=== PATIENT | female | born 1975 | race Caucasian/White ===

== ENCOUNTER 2020-08-25 00:44 | Inpatient (IN) ==
[2020-08-25] MEDS ORDERED: NITROGLYCERIN 2% OINT 1 INCH/GM PACK TOP STA (00:59)
[2020-08-25] MEDS ORDERED: ASPIRIN 325 MG TABLET PO STA (00:59)
[2020-08-25] MEDS ORDERED: NITROGLYCERIN 2% OINT 1 INCH/GM PACK TOP ONE ×2 (01:03→09:13)
[2020-08-25 01:19] LABS: Basophils # 0.1 10*3/uL (0.0-0.2); Basophils % 0.9 % (0.0-0.8); Eosinophils # 0.3 10*3/uL (0.0-0.87); Eosinophils % 2.8 % (0.00-10.9); Hematocrit 40.5 VOL% (35.7-47.0); Hemoglobin 13.5 GM/DL (12.0-16.0); Immature Granulocytes % 0.4 %; Immature Granulocytes Absolute 0.04 #; Lymphocytes # 2.6 10*3/uL (1.4-4.0); Lymphocytes % 23.9 % (21.3-54.2); Mean Corpuscular HGB Conc 33.3 GM/DL (32-36); Mean Corpuscular Volume 86.5 FL (87-102); Monocytes % 6.1 % (1.7-12.7); Neutrophils % 65.9 % (38.7-73.9); Platelet Count 296 T/CUMM (130-400); Red Blood Count 4.68 MC/CUMM (3.8-5.5); Red Cell Distribution Width 12.2 % (9.3-17.3); White Blood Count 10.9 T/CUMM (4-12)
[2020-08-25] MEDS ORDERED: MORPHINE 4 MG/1 ML VIAL IV STA ×2 (01:24→02:06)
[2020-08-25] MEDS ORDERED: ONDANSETRON 4 MG/2 ML VIAL IV STA (01:25)
[2020-08-25] MEDS ORDERED: ALUM/MAG/SIMETH/LIDO VISC 1:1 30 ML BOTTLE PO STA (01:25)
[2020-08-25] MEDS ORDERED: ALUM/MAG/SIMETH/LIDO VISC 1:1 30 ML BOTTLE PO ONE ×2 (01:29→07:30)
[2020-08-25 01:44] LABS: PT Patient Result 10.5 SECS (9.8-11.9)
[2020-08-25] MEDS ORDERED: ENOXAPARIN 30 MG/0.3 ML SYRINGE SUBCUT STA (02:06)
[2020-08-25] MEDS ORDERED: ENOXAPARIN 80 MG/0.8 ML SYRINGE SUBCUT ONE (02:08)
[2020-08-25 02:13] LABS: Albumin 4.5 G/DL (3.4-5.0); Bilirubin,Total 0.4 MG/DL (0.2-1.0); Calcium 9.8 MG/DL (8.5-10.1); Osmolality,Calculated 280.4 MOS/KG (273-304); Potassium 3.8 MMOL/L (3.5-5.1); Total Protein 7.5 G/DL (6.4-8.2)
[2020-08-25] MEDS ORDERED: MAGNESIUM SULF RIDER 4 GM in PREMIX 1 EACH IV PRN (02:15)
[2020-08-25] MEDS ORDERED: MAGNESIUM SULF RIDER 2 GM in PREMIX 1 EACH IV PRN (02:15)
[2020-08-25] MEDS ORDERED: SODIUM CHLORIDE 0.9% 1,000 ML IV STA (02:32)
[2020-08-25] MEDS ORDERED: TIROFIBAN 5,000 MCG/100 ML PREMIX IV SCH (03:05)
[2020-08-25] MEDS ORDERED: ZALEPLON 5 MG CAPSULE PO PRN (04:26)
[2020-08-25] MEDS ORDERED: SODIUM CHLORIDE 0.9% 1,000 ML IV SCH ×2 (04:30→16:30)
[2020-08-25] MEDS ORDERED: CLORAZEPATE 3.75 MG TABLET PO PRN (04:35)
[2020-08-25] MEDS ORDERED: TIROFIBAN 5,000 MCG/100 ML PREMIX IV ONE (04:47)
[2020-08-25] MEDS ORDERED: PROMETHAZINE 25 MG/1 ML VIAL ONE (04:47)
[2020-08-25] MEDS ORDERED: NITROGLYCERIN 50 MG/250 ML BOTTLE IV ONE (04:47)
[2020-08-25] MEDS ORDERED: MIDAZOLAM 2 MG/2 ML VIAL ONE (04:47)
[2020-08-25] MEDS ORDERED: CLOPIDOGREL 300 MG TABLET ONE (04:47)
[2020-08-25] MEDS ORDERED: fentaNYL 100 MCG/2 ML VIAL ONE (04:47)
[2020-08-25] MEDS ORDERED: HYDROmorphone 2 MG/1 ML VIAL ONE (04:47)
[2020-08-25] MEDS: HYDROmorphone 2 MG/1 ML VIAL IV PRN ×4 (05:23→19:35)
[2020-08-25 06:26] LABS: CKMB % 8.6 %; Troponin I 4.47 NG/ML (0.00-0.045)
[2020-08-25] MEDS: PANTOPRAZOLE 40 MG TABLET PO SCH (08:15)
[2020-08-25] MEDS: METOPROLOL TARTRATE 25 MG TABLET PO SCH ×2 (08:15→22:00)
[2020-08-25] MEDS: ASPIRIN EC 81 MG TABLET PO SCH (08:15)
[2020-08-25] MEDS ORDERED: BISACODYL 10 MG SUPP RECTAL ONE (08:18)
[2020-08-25 08:52] LABS: Risk Ratio 3.16; VLDL CHOLESTEROL 16.8 MG/DL
[2020-08-25] MEDS ORDERED: PANTOPRAZOLE 40 MG TABLET PO SCH (09:00)
[2020-08-25] MEDS ORDERED: ASPIRIN EC 81 MG TABLET PO SCH (09:00)
[2020-08-25] MEDS: SUCRALFATE 1 GM TABLET PO PRN ×2 (09:10→22:37)
[2020-08-25] MEDS: NITROGLYCERIN SL 0.4 MG TABLET SL PRN ×2 (12:20→13:03)
[2020-08-25] MEDS: NITROGLYCERIN 2% OINT 1 INCH/GM PACK TOP SCH ×2 (12:30→18:30)
[2020-08-25 13:16] LABS: Troponin I 4.76 NG/ML (0.00-0.045)
[2020-08-25] MEDS: lisinopriL 10 MG TABLET PO SCH (13:30)
[2020-08-25] MEDS: ONDANSETRON 4 MG/2 ML VIAL IV PRN ×2 (13:30→19:37)
[2020-08-25 14:04] LABS: CKMB % 13.9 %
[2020-08-25 14:11] LABS: Troponin I 17.7 NG/ML (0.00-0.045)
[2020-08-25] MEDS: PROMETHAZINE INJ 12.5 MG in SODIUM CHLORIDE 0.9% 50 ML IV PRN ×2 (16:15→22:40)
[2020-08-25 19:23] VITALS: BP 136/78
[2020-08-25] MEDS: ALPRAZolam 0.25 MG TABLET PO PRN (21:00)
[2020-08-25 21:25] LABS: CKMB % 11.8 %
[2020-08-25 21:30] LABS: Troponin I 26.9 NG/ML (0.00-0.045)
[2020-08-25] MEDS: ROSUVASTATIN 20 MG TABLET PO SCH (22:00)
[2020-08-26] MEDS ORDERED: diphenhydrAMINE CAP 25 MG CAPSULE ONE (00:41)
[2020-08-26] MEDS: diphenhydrAMINE CAP 25 MG CAPSULE PO PRN (00:45)
[2020-08-26] MEDS ORDERED: KETOROLAC 15 MG/1 ML VIAL IV SCH (02:30)
[2020-08-26] MEDS: NITROGLYCERIN 2% OINT 1 INCH/GM PACK TOP SCH ×2 (02:43→06:30)
[2020-08-26] MEDS: KETOROLAC 15 MG/1 ML VIAL IV PRN ×3 (02:45→21:57)
[2020-08-26 02:49] LABS: Barbiturates Screen,Urine Negative (Negative); Benzodiazepines Screen,Urine Positive (Negative); Cannabinoid Screen,Urine Negative (Negative); Opiate Screen,Urine Positive (Negative); Phencyclidine Screen,Urine Negative (Negative)
[2020-08-26 05:20] LABS: Basophils % 0.3 % (0.0-0.8); Eosinophils % 0.1 % (0.00-10.9); Hematocrit 37.4 VOL% (35.7-47.0); Hemoglobin 12.5 GM/DL (12.0-16.0); Immature Granulocytes % 0.6 %; Lymphocytes # 1.2 10*3/uL (1.4-4.0); Lymphocytes % 7.6 % (21.3-54.2); Mean Corpuscular HGB Conc 33.4 GM/DL (32-36); Mean Platelet Volume 9.3 FL (9.6-12.0); Neutrophils % 84.4 % (38.7-73.9); Platelet Count 245 T/CUMM (130-400); Red Cell Distribution Width 12.3 % (9.3-17.3); White Blood Count 15.8 T/CUMM (4-12)
[2020-08-26 05:54] LABS: Calcium 8.7 MG/DL (8.5-10.1); Osmolality,Calculated 273.8 MOS/KG (273-304); Potassium 3.5 MMOL/L (3.5-5.1)
[2020-08-26 05:59] LABS: Calcium 8.9 MG/DL (8.5-10.1); Osmolality,Calculated 273.8 MOS/KG (273-304); Potassium 3.4 MMOL/L (3.5-5.1); Risk Ratio 2.75; VLDL CHOLESTEROL 10.8 MG/DL
[2020-08-26 06:30] LABS: Troponin I 24.8 NG/ML (0.00-0.045)
[2020-08-26] MEDS: METOPROLOL TARTRATE 25 MG TABLET PO SCH (08:37)
[2020-08-26] MEDS: ASPIRIN EC 81 MG TABLET PO SCH (08:37)
[2020-08-26] MEDS: CLOPIDOGREL 75 MG TABLET PO SCH (08:37)
[2020-08-26] MEDS: PANTOPRAZOLE 40 MG TABLET PO SCH (08:37)
[2020-08-26] MEDS ORDERED: NON-FORMULARY MEDICATION (Semaglutide [Ozempic] 1 mg/dose (4 mg/3 mL) Pen Injector) SUBCUT SCH (09:00)
[2020-08-26] MEDS: lisinopriL 10 MG TABLET PO SCH (09:01)
[2020-08-26] MEDS ORDERED: PROMETHAZINE 25 MG TABLET PO PRN (15:12)
[2020-08-26] MEDS ORDERED: ACETAMINOPHEN 500 MG TABLET PO PRN (15:12)
[2020-08-26] MEDS: lisinopriL 2.5 MG TABLET PO SCH (20:13)
[2020-08-26] MEDS: carvediloL 3.125 MG TABLET PO SCH (21:57)
[2020-08-26] MEDS: ALPRAZolam 0.25 MG TABLET PO PRN (21:57)
[2020-08-26] MEDS: ROSUVASTATIN 20 MG TABLET PO SCH (21:57)
[2020-08-26] MEDS: SUCRALFATE 1 GM TABLET PO PRN (22:00)
[2020-08-27 04:40] LABS: Basophils # 0.1 10*3/uL (0.0-0.2); Basophils % 0.5 % (0.0-0.8); Eosinophils # 0.2 10*3/uL (0.0-0.87); Eosinophils % 1.3 % (0.00-10.9); Hematocrit 36.2 VOL% (35.7-47.0); Hemoglobin 12.1 GM/DL (12.0-16.0); Immature Granulocytes % 0.4 %; Immature Granulocytes Absolute 0.05 #; Lymphocytes # 1.6 10*3/uL (1.4-4.0); Lymphocytes % 14.4 % (21.3-54.2); Mean Corpuscular HGB Conc 33.4 GM/DL (32-36); Mean Corpuscular Volume 87.2 FL (87-102); Mean Platelet Volume 9.2 FL (9.6-12.0); Monocytes % 9.4 % (1.7-12.7); Platelet Count 230 T/CUMM (130-400); Red Blood Count 4.15 MC/CUMM (3.8-5.5); Red Cell Distribution Width 12.4 % (9.3-17.3); White Blood Count 11.3 T/CUMM (4-12)
[2020-08-27 05:18] LABS: Calcium 8.9 MG/DL (8.5-10.1); Osmolality,Calculated 276.5 MOS/KG (273-304); Potassium 3.7 MMOL/L (3.5-5.1)
[2020-08-27] MEDS: diphenhydrAMINE CAP 25 MG CAPSULE PO PRN (07:15)
[2020-08-27] MEDS: ASPIRIN EC 81 MG TABLET PO SCH (08:08)
[2020-08-27] MEDS: carvediloL 3.125 MG TABLET PO SCH (08:09)
[2020-08-27] MEDS: lisinopriL 2.5 MG TABLET PO SCH (08:09)
[2020-08-27] MEDS: PANTOPRAZOLE 40 MG TABLET PO SCH (08:09)
[2020-08-27] MEDS: CLOPIDOGREL 75 MG TABLET PO SCH (08:09)
[2020-08-27] MEDS ORDERED: carvediloL 3.125 MG TABLET PO ONE (11:30)
[2020-08-27] MEDS ORDERED: carvediloL 6.25 MG TABLET PO SCH (21:00)
== END 2020-08-27 14:24 | disposition home or self-care (01) | DRG 280 ==
LOC: N.ED 00:44 → N.EDINP 00:44 → N.ICU 04:32
PROVIDERS: ADMIT Internal Medicine Cardiovascular Disease; ATTEND Internal Medicine Cardiovascular Disease
PROC: CLCCHCL (ICD-10-PCS; 2020-08-25 04:15)